=== PATIENT | female | born 1930 | race Caucasian/White ===

== ENCOUNTER 2018-05-30 20:48 | Inpatient (IN) | payer MEDICARE, MEDICAID ==
[~2018-05-30] VITALS: Ht 152.4 cm; Wt 60.0 kg
[~2018-05-30 20:48] MED LIST: AMLO5TAB7 PO; ASPI-496 PO; ASPI325T17; CEFD300C37 PO; CEFTRIAXONE 2 GM in SODIUM CHLORIDE 0.9% 50 ML IV SCH; DONE5TAB7 PO; DOXYCYCLINE 100 MG in DEXTROSE 5% 250 ML IV SCH; HYDR-3237 PO; INSU100I13 SQ; INSU100I18; INSU100V8; LEVO50CA2; LISI-170; LISI-170 PO; LORA10CA; LOVA-39 PO; METO-93; PRED5TAB PO; TIMO5DRO5 EACHEYE; VALA10004 PO
[2018-05-30] MEDS ORDERED: SODIUM CHLORIDE 0.9% 1,000ML IVBOLUS ONE ×2 (21:30→22:00)
[2018-05-30] MEDS ORDERED: PIPERACILLIN/TAZO/PMX 3.375GM 50 ML IVPB ONE (21:30)
[2018-05-30] MEDS ORDERED: VANCOMYCIN PER PHARMACY IV ONE (21:30)
[2018-05-30] MEDS ORDERED: LISI-167 PO (21:33)
[2018-05-30 21:38] LABS: CULTURE INDICATED? YES; MICROSCOPIC INDICATED
[2018-05-30] MEDS ORDERED: PIPERACILLIN/TAZO/PMX 3.375GM 50 ML ONE (21:39)
[2018-05-30] MEDS ORDERED: ACETAMINOPHEN 325 MG TABLET ONE (21:49)
[2018-05-30 21:53] LABS: BASOPHILS # (AUTO) 0.03 x10^3/uL (0-0.1); BASOPHILS % (AUTO) 0 % (0-1); EOSINOPHILS # (AUTO) 0.02 x10^3/uL (0-0.4); EOSINOPHILS % (AUTO) 0 % (1-7); LYMPHOCYTES # (AUTO) 1.17 x10^3/uL (1-3.4); LYMPHOCYTES % (AUTO) 13 % (22-44); MD NO; MEAN CORPUSCULAR HEMOGLOBIN 25.6 pg (27.0-34.8); MEAN CORPUSCULAR HGB CONC 32.8 g/dL (32.4-35.8); MEAN CORPUSCULAR VOLUME 78.1 fL (80-100); MEAN PLATELET VOLUME 10.4 fL (7.4-10.4); MONOCYTES # (AUTO) 0.51 x10^3/uL (0.2-0.8); MONOCYTES % (AUTO) 6 % (2-9); NEUTROPHILS % (AUTO) 81 % (42-75); PLATELET COUNT 142 x10^3/uL (130-400); RED BLOOD COUNT 5.56 x10^6/uL (3.82-5.3); RED CELL DISTRIBUTION WIDTH 16.5 % (9.6-15.2)
[2018-05-30] MEDS ORDERED: ACETAMINOPHEN 325 MG TABLET PO ONE (22:00)
[2018-05-30] MEDS ORDERED: VANCOMYCIN PMX 1GM/200ML 200 ML IV ONE (22:00)
[2018-05-30] MEDS ORDERED: PHARMACOKINETIC CONSULTATION MC ONE (22:00)
[2018-05-30 22:04] LABS: ALANINE AMINOTRANSFERASE 18 U/L (12-78); ALBUMIN 2.7 g/dL (3.4-5.0); ANION GAP 8 mmol/L (5-15); CALCIUM 8.3 mg/dL (8.5-10.1); CHLORIDE 107 mmol/L (98-107); CREATININE 0.99 mg/dL (0.55-1.02)
[2018-05-30 22:09] LABS: ALKALINE PHOSPHATASE 210 U/L (45-117); BILIRUBIN,TOTAL 0.7 mg/dL (0.2-1.0); TOTAL PROTEIN 8.1 g/dL (6.4-8.2); TROPONIN I 0.085 ng/mL (0.000-0.045)
[2018-05-30 22:10] LABS: INTERNATIONAL NORMALIZED RATIO 1.08 (0.93-1.1); PROTHROMBIN TIME 11.1 Seconds (9.6-11.5)
[2018-05-30] MEDS ORDERED: SODIUM CHLORIDE 0.9% 1,000 ML IV ONE (22:39)
[2018-05-30] MEDS ORDERED: SODIUM CHLORIDE 0.9% 1,000 ML IV SCH (23:08)
[2018-05-30] MEDS ORDERED: ONDANSETRON ODT 4 MG PO PRN (23:30)
[2018-05-30] MEDS ORDERED: hydrALAzine 20 MG/ML, 1ML IVPush PRN (23:30)
[2018-05-30] MEDS ORDERED: ACETAMINOPHEN 325 MG TABLET PO PRN (23:30)
[2018-05-30] MEDS ORDERED: HYDROcodone/APAP 5/325 TABLET PO PRN (23:30)
[2018-05-30] MEDS ORDERED: DOCUSATE 100 MG CAPSULE PO PRN (23:30)
[2018-05-30] MEDS ORDERED: POLYETHYLENE GLYCOL 17 GM PACKET PO PRN (23:30)
[2018-05-30] MEDS ORDERED: PROMETHAZINE 25 MG/ML, 1ML IM PRN (23:30)
[2018-05-30] MEDS ORDERED: BISACODYL 10 MG SUPP PR PRN (23:30)
[2018-05-30] MEDS ORDERED: ONDANSETRON 2MG/ML, 2ML IVPush PRN (23:30)
[2018-05-30 23:41] LABS: HEMOGLOBIN A1C 12.4 % (4.2-6.3)
[2018-05-30] MEDS ORDERED: PLEASE ENTER HEIGHT MC SCH (23:45)
[2018-05-30 23:55] LABS: FREE T4 (FREE THYROXINE) 1.07 ng/dL (0.76-1.46); THYROID STIMULATING HORMONE 3.6 mIU/L (0.358-3.740)
[2018-05-31 00:30] VITALS: BP 148/81
[2018-05-31] MEDS: LOVASTATIN 20 MG TABLET PO SCH ×2 (00:52→21:24)
[2018-05-31] MEDS: ASPIRIN 81 MG TABLET CHEW PO SCH ×2 (00:52→21:24)
[2018-05-31] MEDS: HEPARIN 5,000 UNITS/ML, 1ML SQ SCH ×3 (00:52→18:27)
[2018-05-31] MEDS: CEFTRIAXONE 2 GM in SODIUM CHLORIDE 0.9% 50 ML IV SCH (00:52)
[2018-05-31] MEDS: DOXYCYCLINE 100 MG in DEXTROSE 5% 250 ML IV SCH ×2 (01:40→13:27)
[2018-05-31] MEDS: INSULIN LISPRO 100 UNITS/ML, PEN SQ-INSULIN SCH ×5 (01:41→21:24)
[2018-05-31] MEDS: INSULIN GLARGINE 100 UNITS/ML, PEN SQ-INSULIN SCH ×2 (01:41→21:25)
[2018-05-31 03:24] LABS: BASOPHILS # (AUTO) 0.03 x10^3/uL (0-0.1); BASOPHILS % (AUTO) 0 % (0-1); EOSINOPHILS # (AUTO) 0.09 x10^3/uL (0-0.4); EOSINOPHILS % (AUTO) 1 % (1-7); LYMPHOCYTES # (AUTO) 1.74 x10^3/uL (1-3.4); LYMPHOCYTES % (AUTO) 21 % (22-44); MD NO; MEAN CORPUSCULAR HEMOGLOBIN 25.3 pg (27.0-34.8); MEAN CORPUSCULAR HGB CONC 32.2 g/dL (32.4-35.8); MEAN CORPUSCULAR VOLUME 78.8 fL (80-100); MEAN PLATELET VOLUME 9.8 fL (7.4-10.4); MONOCYTES # (AUTO) 0.66 x10^3/uL (0.2-0.8); MONOCYTES % (AUTO) 8 % (2-9); NEUTROPHILS # (AUTO) 5.75 x10^3/uL (1.8-6.8); NEUTROPHILS % (AUTO) 70 % (42-75); PLATELET COUNT 117 x10^3/uL (130-400); RED BLOOD COUNT 4.83 x10^6/uL (3.82-5.3); RED CELL DISTRIBUTION WIDTH 17.1 % (9.6-15.2)
[2018-05-31 03:34] LABS: ALANINE AMINOTRANSFERASE 14 U/L (12-78); ALBUMIN 2.1 g/dL (3.4-5.0); ANION GAP 7 mmol/L (5-15); CALCIUM 7.4 mg/dL (8.5-10.1); CHLORIDE 111 mmol/L (98-107); CHOLESTEROL, TOTAL 204 mg/dL (140-239); CREATININE 0.87 mg/dL (0.55-1.02); TRIGLYCERIDES 98 mg/dL (50-200); VLDL CHOLESTEROL 20 mg/dL (0-25)
[2018-05-31 03:38] LABS: ALKALINE PHOSPHATASE 160 U/L (45-117); BILIRUBIN,TOTAL 0.4 mg/dL (0.2-1.0); CHOL/HDL RATIO 6.6; HDL CHOL % 15 % (28-40); HDL CHOLESTEROL (DIRECT) 31 mg/dL (40-60); LDL CHOLESTEROL,CALCULATED 153 mg/dL (54-169); LDL/HDL RATIO 4.9 (0.5-3.0); TOTAL PROTEIN 6.6 g/dL (6.4-8.2)
[2018-05-31] MEDS ORDERED: OMNIPAQUE 350 MG/ML, 100ML BOTTLE ONE (04:14)
[2018-05-31 07:02] VITALS: BP 101/58
[2018-05-31] MEDS ORDERED: LISINOPRIL 10 MG TABLET PO SCH (09:00)
[2018-05-31 09:06] LABS: TROPONIN I 0.111 ng/mL (0.000-0.045)
[2018-05-31] MEDS: METOPROLOL SUCCINATE 50 MG TAB.ER.24H PO SCH (10:05)
[2018-05-31 12:29] VITALS: BP 90/55
[2018-05-31 12:50] VITALS: BP 100/64
[2018-05-31 14:29] VITALS: BP 117/72
[2018-05-31] MEDS ORDERED: ALBUTEROL SULFATE 2.5 MG/3 ML ONE (14:48)
[2018-05-31 15:00] LABS: TROPONIN I 0.113 ng/mL (0.000-0.045)
[2018-05-31] MEDS ORDERED: ALBUTEROL SULFATE 2.5 MG/3 ML NPPB PRN (15:00)
[2018-05-31] MEDS: NS + 20MEQ KCL 1,000 ML IV SCH (15:15)
[2018-05-31 20:32] VITALS: BP 156/103
[2018-05-31] MEDS: morphine SULFATE 10 MG/ML, 1ML IVPush PRN (21:50)
[2018-05-31] MEDS: ALBUTEROL SULFATE 2.5 MG/3 ML NPPB PRN (21:52)
[2018-06-01] VITALS (11 sets, daily range): BP systolic 102–188; BP diastolic 60–108
[2018-06-01] MEDS: CEFTRIAXONE 2 GM in SODIUM CHLORIDE 0.9% 50 ML IV SCH (00:18)
[2018-06-01] MEDS: DOXYCYCLINE 100 MG in DEXTROSE 5% 250 ML IV SCH ×2 (01:09→13:13)
[2018-06-01] MEDS: HEPARIN 5,000 UNITS/ML, 1ML SQ SCH ×3 (01:35→18:08)
[2018-06-01] MEDS: NS + 20MEQ KCL 1,000 ML IV SCH ×2 (06:24→22:39)
[2018-06-01] MEDS: INSULIN LISPRO 100 UNITS/ML, PEN SQ-INSULIN SCH ×4 (07:00→21:18)
[2018-06-01] MEDS: METOPROLOL SUCCINATE 50 MG TAB.ER.24H PO SCH (08:34)
[2018-06-01] MEDS: morphine SULFATE 10 MG/ML, 1ML IVPush PRN ×2 (13:07→18:37)
[2018-06-01 14:05] LABS: TROPONIN I 0.054 ng/mL (0.000-0.045)
[2018-06-01] MEDS ORDERED: LABETALOL 5MG/ML, 20ML IVPush PRN (14:30)
[2018-06-01] MEDS: LISINOPRIL 10 MG TABLET PO SCH (14:41)
[2018-06-01] MEDS: methylPREDNISolone SOD SUCC 125 MG/2 ML IVPush SCH ×2 (14:41→21:16)
[2018-06-01] MEDS: GUAIFENESIN 200 MG TABLET PO SCH ×2 (16:16→21:16)
[2018-06-01] MEDS: LOVASTATIN 20 MG TABLET PO SCH (21:16)
[2018-06-01] MEDS: ASPIRIN 81 MG TABLET CHEW PO SCH (21:16)
[2018-06-01] MEDS: INSULIN GLARGINE 100 UNITS/ML, PEN SQ-INSULIN SCH (21:18)
[2018-06-02] MEDS: CEFTRIAXONE 2 GM in SODIUM CHLORIDE 0.9% 50 ML IV SCH (00:32)
[2018-06-02] MEDS: DOXYCYCLINE 100 MG in DEXTROSE 5% 250 ML IV SCH ×2 (01:26→14:24)
[2018-06-02 02:00] VITALS: BP 124/64
[2018-06-02] MEDS: methylPREDNISolone SOD SUCC 125 MG/2 ML IVPush SCH ×4 (02:45→21:09)
[2018-06-02] MEDS: HEPARIN 5,000 UNITS/ML, 1ML SQ SCH ×4 (02:45→21:45)
[2018-06-02 05:09] LABS: ANION GAP 6 mmol/L (5-15); CALCIUM 8.3 mg/dL (8.5-10.1); CHLORIDE 115 mmol/L (98-107)
[2018-06-02 05:11] LABS: BASOPHILS % (AUTO) 0 % (0-1); EOSINOPHILS % (AUTO) 0 % (1-7); LYMPHOCYTES # (AUTO) 0.39 x10^3/uL (1-3.4); LYMPHOCYTES % (AUTO) 6 % (22-44); MD NO; MEAN CORPUSCULAR HEMOGLOBIN 25.3 pg (27.0-34.8); MEAN CORPUSCULAR HGB CONC 31.9 g/dL (32.4-35.8); MEAN CORPUSCULAR VOLUME 79.3 fL (80-100); MEAN PLATELET VOLUME 9.7 fL (7.4-10.4); MONOCYTES # (AUTO) 0.05 x10^3/uL (0.2-0.8); MONOCYTES % (AUTO) 1 % (2-9); NEUTROPHILS # (AUTO) 5.88 x10^3/uL (1.8-6.8); NEUTROPHILS % (AUTO) 93 % (42-75); PLATELET COUNT 149 x10^3/uL (130-400); RED BLOOD COUNT 4.81 x10^6/uL (3.82-5.3); RED CELL DISTRIBUTION WIDTH 17.7 % (9.6-15.2)
[2018-06-02 05:12] LABS: CREATININE 0.88 mg/dL (0.55-1.02)
[2018-06-02] MEDS: GUAIFENESIN 200 MG TABLET PO SCH ×5 (06:21→21:03)
[2018-06-02 06:59] VITALS: BP 148/82
[2018-06-02] MEDS: LISINOPRIL 10 MG TABLET PO SCH (08:54)
[2018-06-02] MEDS ORDERED: METOPROLOL SUCCINATE 50 MG TAB.ER.24H PO SCH (09:00)
[2018-06-02] MEDS: INSULIN LISPRO 100 UNITS/ML, PEN SQ-INSULIN SCH ×6 (09:08→21:10)
[2018-06-02] MEDS ORDERED: FUROSEMIDE 20 MG/2 ML ONE (11:19)
[2018-06-02] MEDS ORDERED: FUROSEMIDE 20 MG/2 ML IV ONE ×2 (11:30→20:00)
[2018-06-02 12:49] VITALS: BP 145/79
[2018-06-02] MEDS: ALBUTEROL SULFATE 2.5 MG/3 ML NPPB PRN (16:35)
[2018-06-02 20:15] VITALS: BP 119/74
[2018-06-02] MEDS: ASPIRIN 81 MG TABLET CHEW PO SCH (20:20)
[2018-06-02] MEDS: LOVASTATIN 20 MG TABLET PO SCH (20:20)
[2018-06-02] MEDS: PIPERACILLIN/TAZO/PMX 3.375GM 50 ML IV SCH ×2 (21:08→21:59)
[2018-06-02] MEDS: INSULIN GLARGINE 100 UNITS/ML, PEN SQ-INSULIN SCH (21:10)
[2018-06-02 22:02] LABS: BASOPHILS % (AUTO) 0 % (0-1); EOSINOPHILS % (AUTO) 0 % (1-7); LYMPHOCYTES # (AUTO) 0.72 x10^3/uL (1-3.4); LYMPHOCYTES % (AUTO) 7 % (22-44); MD NO; MEAN CORPUSCULAR HEMOGLOBIN 25.6 pg (27.0-34.8); MEAN CORPUSCULAR HGB CONC 32.6 g/dL (32.4-35.8); MEAN CORPUSCULAR VOLUME 78.6 fL (80-100); MEAN PLATELET VOLUME 9.6 fL (7.4-10.4); MONOCYTES # (AUTO) 0.38 x10^3/uL (0.2-0.8); MONOCYTES % (AUTO) 4 % (2-9); NEUTROPHILS # (AUTO) 8.83 x10^3/uL (1.8-6.8); NEUTROPHILS % (AUTO) 89 % (42-75); PLATELET COUNT 169 x10^3/uL (130-400); RED BLOOD COUNT 4.66 x10^6/uL (3.82-5.3)
[2018-06-02 22:10] LABS: ANION GAP 7 mmol/L (5-15); CALCIUM 8.6 mg/dL (8.5-10.1); CHLORIDE 114 mmol/L (98-107); CREATININE 1.11 mg/dL (0.55-1.02)
[2018-06-03 02:26] VITALS: BP 122/70
[2018-06-03] MEDS: methylPREDNISolone SOD SUCC 125 MG/2 ML IVPush SCH ×4 (03:16→22:22)
[2018-06-03] MEDS: HEPARIN 5,000 UNITS/ML, 1ML SQ SCH ×3 (05:55→22:00)
[2018-06-03] MEDS: PIPERACILLIN/TAZO/PMX 3.375GM 50 ML IV SCH ×3 (05:55→22:22)
[2018-06-03] MEDS: INSULIN LISPRO 100 UNITS/ML, PEN SQ-INSULIN SCH ×4 (07:00→22:47)
[2018-06-03 07:38] VITALS: BP 147/90
[2018-06-03] MEDS: GUAIFENESIN 100 MG/5 ML, 5ML UDC PO SCH ×3 (14:09→21:00)
[2018-06-03] MEDS: LISINOPRIL 10 MG TABLET PO SCH (14:10)
[2018-06-03 14:29] VITALS: BP 128/84
[2018-06-03] MEDS: METOPROLOL TARTRATE 50 MG TABLET PO SCH (18:20)
[2018-06-03 20:01] VITALS: BP 111/71
[2018-06-03] MEDS: ASPIRIN 81 MG TABLET CHEW PO SCH (21:00)
[2018-06-03] MEDS: LOVASTATIN 20 MG TABLET PO SCH (21:00)
[2018-06-03] MEDS: INSULIN GLARGINE 100 UNITS/ML, PEN SQ-INSULIN SCH (21:00)
[2018-06-03] MEDS ORDERED: SODIUM CHLORIDE 0.9% 1,000 ML IV SCH (23:00)
[2018-06-04 00:37] VITALS: BP 142/79
[2018-06-04] MEDS: methylPREDNISolone SOD SUCC 125 MG/2 ML IVPush SCH ×4 (04:48→21:12)
[2018-06-04] MEDS: GUAIFENESIN 100 MG/5 ML, 5ML UDC PO SCH ×4 (06:00→21:14)
[2018-06-04] MEDS: HEPARIN 5,000 UNITS/ML, 1ML SQ SCH ×3 (06:00→21:20)
[2018-06-04] MEDS: METOPROLOL TARTRATE 50 MG TABLET PO SCH (06:00)
[2018-06-04] MEDS: PIPERACILLIN/TAZO/PMX 3.375GM 50 ML IV SCH (06:22)
[2018-06-04 07:18] VITALS: BP 129/83
[2018-06-04] MEDS: FLUTICASONE/VILANTEROL 200-25MCG/INH INH SCH (09:00)
[2018-06-04 09:10] LABS: MEAN CORPUSCULAR HEMOGLOBIN 25.4 pg (27.0-34.8); MEAN CORPUSCULAR HGB CONC 32.4 g/dL (32.4-35.8); MEAN CORPUSCULAR VOLUME 78.5 fL (80-100); MEAN PLATELET VOLUME 9.4 fL (7.4-10.4); PLATELET COUNT 126 x10^3/uL (130-400); RED BLOOD COUNT 4.75 x10^6/uL (3.82-5.3); RED CELL DISTRIBUTION WIDTH 17.9 % (9.6-15.2)
[2018-06-04 09:15] LABS: ANION GAP 10 mmol/L (5-15); CALCIUM 8.4 mg/dL (8.5-10.1); CHLORIDE 114 mmol/L (98-107); CREATININE 1.17 mg/dL (0.55-1.02)
[2018-06-04 09:36] LABS: BASOPHILS % (AUTO) 0 % (0-1); EOSINOPHILS # (AUTO) 0.06 x10^3/uL (0-0.4); EOSINOPHILS % (AUTO) 1 % (1-7); LYMPHOCYTES # (AUTO) 0.24 x10^3/uL (1-3.4); LYMPHOCYTES % (AUTO) 3 % (22-44); MD SCAN; MONOCYTES # (AUTO) 0.11 x10^3/uL (0.2-0.8); MONOCYTES % (AUTO) 2 % (2-9); NEUTROPHILS # (AUTO) 6.86 x10^3/uL (1.8-6.8); NEUTROPHILS % (AUTO) 94 % (42-75)
[2018-06-04] MEDS: INSULIN LISPRO 100 UNITS/ML, PEN SQ-INSULIN SCH ×4 (10:24→21:13)
[2018-06-04] MEDS: FUROSEMIDE 20 MG/2 ML IV SCH (10:48)
[2018-06-04] MEDS ORDERED: NITROGLYCERIN 0.4 MG BOTTLE (25 TABS) SL PRN (11:00)
[2018-06-04] MEDS: CEFTRIAXONE 2 GM in SODIUM CHLORIDE 0.9% 50 ML IV SCH (11:54)
[2018-06-04] MEDS: ERGOCALCIFEROL 50,000 UNIT CAPSULE PO SCH (11:54)
[2018-06-04] MEDS: LISINOPRIL 10 MG TABLET PO SCH (11:55)
[2018-06-04 14:23] VITALS: BP 130/78
[2018-06-04] MEDS ORDERED: OMNIPAQUE 350 MG/ML, 150 ML BOTTLE ONE (14:24)
[2018-06-04] MEDS: DOXYCYCLINE 100 MG in DEXTROSE 5% 250 ML IV SCH (17:15)
[2018-06-04] MEDS: CARVEDILOL 6.25 MG TABLET PO SCH (17:16)
[2018-06-04 19:19] VITALS: BP 171/76
[2018-06-04] MEDS: ASPIRIN 81 MG TABLET CHEW PO SCH (21:12)
[2018-06-04] MEDS: LOVASTATIN 20 MG TABLET PO SCH (21:12)
[2018-06-05 01:23] VITALS: BP 113/68
[2018-06-05] MEDS: DOXYCYCLINE 100 MG in DEXTROSE 5% 250 ML IV SCH ×2 (01:41→16:35)
[2018-06-05] MEDS: methylPREDNISolone SOD SUCC 125 MG/2 ML IVPush SCH ×4 (02:31→19:49)
[2018-06-05 06:10] LABS: CHLORIDE 114 mmol/L (98-107)
[2018-06-05 06:14] LABS: ANION GAP 10 mmol/L (5-15); CALCIUM 7.7 mg/dL (8.5-10.1); CREATININE 1.08 mg/dL (0.55-1.02)
[2018-06-05] MEDS: CARVEDILOL 6.25 MG TABLET PO SCH ×2 (06:23→18:31)
[2018-06-05] MEDS: HEPARIN 5,000 UNITS/ML, 1ML SQ SCH ×3 (06:24→22:15)
[2018-06-05] MEDS: GUAIFENESIN 100 MG/5 ML, 5ML UDC PO SCH ×3 (06:24→15:32)
[2018-06-05 08:00] VITALS: BP 124/70
[2018-06-05] MEDS: FLUTICASONE/VILANTEROL 200-25MCG/INH INH SCH ×2 (09:00→10:55)
[2018-06-05] MEDS ORDERED: POTASSIUM CHLORIDE 20 MEQ in DEXTROSE 5% 1,000 ML IV SCH (10:00)
[2018-06-05] MEDS: FUROSEMIDE 20 MG/2 ML IV SCH ×2 (10:00→10:56)
[2018-06-05] MEDS ORDERED: INSULIN GLARGINE 100 UNITS/ML, PEN SQ-INSULIN SCH ×2 (10:00→21:00)
[2018-06-05] MEDS: INSULIN LISPRO 100 UNITS/ML, PEN SQ-INSULIN SCH ×4 (10:55→20:30)
[2018-06-05] MEDS: LISINOPRIL 10 MG TABLET PO SCH (10:56)
[2018-06-05] MEDS: CEFTRIAXONE 2 GM in SODIUM CHLORIDE 0.9% 50 ML IV SCH (10:59)
[2018-06-05 14:50] VITALS: BP 148/76
[2018-06-05] MEDS: ALBUTEROL SULFATE 2.5 MG/3 ML NPPB PRN (15:26)
[2018-06-05 19:48] VITALS: BP 124/65
[2018-06-05] MEDS ORDERED: FUROSEMIDE 20 MG/2 ML IV ONE (20:00)
[2018-06-05] MEDS: ASPIRIN 81 MG TABLET CHEW PO SCH (20:24)
[2018-06-05] MEDS: LOVASTATIN 20 MG TABLET PO SCH (20:24)
[2018-06-06 02:11] VITALS: BP 116/54
[2018-06-06] MEDS: DOXYCYCLINE 100 MG in DEXTROSE 5% 250 ML IV SCH (02:12)
[2018-06-06] MEDS: methylPREDNISolone SOD SUCC 125 MG/2 ML IVPush SCH ×4 (02:12→21:27)
[2018-06-06 05:12] LABS: ANION GAP 8 mmol/L (5-15); CALCIUM 7.9 mg/dL (8.5-10.1); CHLORIDE 112 mmol/L (98-107); CREATININE 0.87 mg/dL (0.55-1.02)
[2018-06-06] MEDS: INSULIN LISPRO 100 UNITS/ML, PEN SQ-INSULIN SCH ×4 (05:36→21:27)
[2018-06-06] MEDS: CARVEDILOL 6.25 MG TABLET PO SCH ×2 (05:36→17:36)
[2018-06-06] MEDS: HEPARIN 5,000 UNITS/ML, 1ML SQ SCH ×3 (05:36→21:27)
[2018-06-06 08:24] VITALS: BP 138/78
[2018-06-06] MEDS: FLUTICASONE/VILANTEROL 200-25MCG/INH INH SCH (09:00)
[2018-06-06] MEDS: LISINOPRIL 10 MG TABLET PO SCH (09:27)
[2018-06-06] MEDS: FUROSEMIDE 20 MG/2 ML IV SCH (09:27)
[2018-06-06] MEDS ORDERED: POTASSIUM CHLORIDE 20 MEQ in DEXTROSE 5% 1,000 ML IV SCH (10:00)
[2018-06-06] MEDS: CEFTRIAXONE 2 GM in SODIUM CHLORIDE 0.9% 50 ML IV SCH (12:24)
[2018-06-06 14:36] VITALS: BP 134/72
[2018-06-06] MEDS: POTASSIUM CHLORIDE 40 MEQ in DEXTROSE 5% 1,000 ML IV SCH (15:15)
[2018-06-06] MEDS: PIPERACILLIN/TAZO/PMX 3.375GM 50 ML IV SCH ×2 (15:15→22:30)
[2018-06-06 20:00] VITALS: BP 106/67
[2018-06-06] MEDS: ASPIRIN 81 MG TABLET CHEW PO SCH (21:27)
[2018-06-06] MEDS: LOVASTATIN 20 MG TABLET PO SCH (21:27)
[2018-06-06] MEDS: INSULIN GLARGINE 100 UNITS/ML, PEN SQ-INSULIN SCH (21:28)
[2018-06-07 01:23] VITALS: BP 135/70
[2018-06-07] MEDS: methylPREDNISolone SOD SUCC 125 MG/2 ML IVPush SCH ×4 (03:20→21:31)
[2018-06-07] MEDS: CARVEDILOL 6.25 MG TABLET PO SCH ×2 (05:35→17:51)
[2018-06-07] MEDS: PIPERACILLIN/TAZO/PMX 3.375GM 50 ML IV SCH ×3 (05:35→22:41)
[2018-06-07] MEDS: HEPARIN 5,000 UNITS/ML, 1ML SQ SCH ×3 (05:36→22:41)
[2018-06-07 05:59] LABS: ANION GAP 8 mmol/L (5-15); CALCIUM 8.1 mg/dL (8.5-10.1); CHLORIDE 111 mmol/L (98-107)
[2018-06-07 06:00] LABS: CREATININE 0.86 mg/dL (0.55-1.02)
[2018-06-07] MEDS: INSULIN LISPRO 100 UNITS/ML, PEN SQ-INSULIN SCH ×4 (07:00→21:33)
[2018-06-07] MEDS: FLUTICASONE/VILANTEROL 200-25MCG/INH INH SCH (09:00)
[2018-06-07 09:07] VITALS: BP 159/79
[2018-06-07] MEDS: FUROSEMIDE 20 MG/2 ML IV SCH (09:19)
[2018-06-07] MEDS: LISINOPRIL 10 MG TABLET PO SCH (09:19)
[2018-06-07] MEDS ORDERED: POTASSIUM CHLORIDE 40 MEQ in DEXTROSE 5% 1,000 ML IV SCH (10:00)
[2018-06-07 12:06] VITALS: BP 154/79
[2018-06-07] MEDS: POTASSIUM CHLORIDE 40 MEQ in DEXTROSE 5% 1,000 ML IV SCH (17:51)
[2018-06-07 19:48] VITALS: BP 96/59
[2018-06-07] MEDS: ASPIRIN 81 MG TABLET CHEW PO SCH (21:31)
[2018-06-07] MEDS: LOVASTATIN 20 MG TABLET PO SCH (21:32)
[2018-06-07] MEDS: INSULIN GLARGINE 100 UNITS/ML, PEN SQ-INSULIN SCH (21:33)
[2018-06-08 01:34] VITALS: BP 131/63
[2018-06-08] MEDS: methylPREDNISolone SOD SUCC 125 MG/2 ML IVPush SCH ×4 (03:00→21:30)
[2018-06-08] MEDS: PIPERACILLIN/TAZO/PMX 3.375GM 50 ML IV SCH ×3 (06:29→22:52)
[2018-06-08 06:30] VITALS: BP 177/113
[2018-06-08] MEDS: CARVEDILOL 6.25 MG TABLET PO SCH ×2 (06:30→18:16)
[2018-06-08] MEDS: HEPARIN 5,000 UNITS/ML, 1ML SQ SCH ×3 (06:30→21:35)
[2018-06-08 06:32] LABS: ANION GAP 5 mmol/L (5-15); CHLORIDE 112 mmol/L (98-107)
[2018-06-08 06:38] VITALS: BP 165/87
[2018-06-08 06:57] VITALS: BP 132/76
[2018-06-08] MEDS: LISINOPRIL 10 MG TABLET PO SCH (08:41)
[2018-06-08] MEDS: FUROSEMIDE 20 MG/2 ML IV SCH (08:42)
[2018-06-08] MEDS: FLUTICASONE/VILANTEROL 200-25MCG/INH INH SCH (08:43)
[2018-06-08] MEDS: INSULIN LISPRO 100 UNITS/ML, PEN SQ-INSULIN SCH ×4 (08:43→21:34)
[2018-06-08 13:15] VITALS: BP 128/82
[2018-06-08] MEDS: POTASSIUM CHLORIDE 40 MEQ in DEXTROSE 5% 1,000 ML IV SCH (18:16)
[2018-06-08 20:56] VITALS: BP 124/71
[2018-06-08] MEDS: LOVASTATIN 20 MG TABLET PO SCH (21:35)
[2018-06-08] MEDS: INSULIN GLARGINE 100 UNITS/ML, PEN SQ-INSULIN SCH (21:35)
[2018-06-08] MEDS: ASPIRIN 81 MG TABLET CHEW PO SCH (21:35)
[2018-06-09 03:02] VITALS: BP 122/67
[2018-06-09] MEDS: methylPREDNISolone SOD SUCC 125 MG/2 ML IVPush SCH ×4 (03:24→22:01)
[2018-06-09] MEDS: HEPARIN 5,000 UNITS/ML, 1ML SQ SCH ×2 (06:09→15:49)
[2018-06-09] MEDS: CARVEDILOL 6.25 MG TABLET PO SCH ×2 (06:09→17:16)
[2018-06-09] MEDS: PIPERACILLIN/TAZO/PMX 3.375GM 50 ML IV SCH ×2 (06:19→15:49)
[2018-06-09 07:22] VITALS: BP 100/60
[2018-06-09] MEDS: FLUTICASONE/VILANTEROL 200-25MCG/INH INH SCH (08:27)
[2018-06-09] MEDS: FUROSEMIDE 20 MG/2 ML IV SCH (08:27)
[2018-06-09] MEDS: LISINOPRIL 10 MG TABLET PO SCH (08:29)
[2018-06-09] MEDS: INSULIN LISPRO 100 UNITS/ML, PEN SQ-INSULIN SCH ×4 (08:33→22:02)
[2018-06-09 12:43] VITALS: BP 154/89
[2018-06-09] MEDS: POTASSIUM CHLORIDE 40 MEQ in DEXTROSE 5% 1,000 ML IV SCH (17:22)
[2018-06-09 19:38] VITALS: BP 102/69
[2018-06-09] MEDS: LOVASTATIN 20 MG TABLET PO SCH (22:01)
[2018-06-09] MEDS: ASPIRIN 81 MG TABLET CHEW PO SCH (22:01)
[2018-06-09] MEDS: INSULIN GLARGINE 100 UNITS/ML, PEN SQ-INSULIN SCH (22:03)
[2018-06-10] MEDS: PIPERACILLIN/TAZO/PMX 3.375GM 50 ML IV SCH ×3 (00:08→23:58)
[2018-06-10] MEDS: HEPARIN 5,000 UNITS/ML, 1ML SQ SCH ×4 (00:08→23:58)
[2018-06-10 02:48] VITALS: BP 127/71
[2018-06-10] MEDS: methylPREDNISolone SOD SUCC 125 MG/2 ML IVPush SCH ×4 (04:06→22:01)
[2018-06-10 05:31] VITALS: BP 144/87
[2018-06-10] MEDS: CARVEDILOL 6.25 MG TABLET PO SCH ×2 (05:33→17:27)
[2018-06-10 06:43] VITALS: BP 116/64
[2018-06-10] MEDS: INSULIN LISPRO 100 UNITS/ML, PEN SQ-INSULIN SCH ×4 (07:00→21:00)
[2018-06-10] MEDS: FLUTICASONE/VILANTEROL 200-25MCG/INH INH SCH (09:00)
[2018-06-10] MEDS: FUROSEMIDE 20 MG/2 ML IV SCH (09:12)
[2018-06-10] MEDS: LISINOPRIL 10 MG TABLET PO SCH (09:13)
[2018-06-10] MEDS: POTASSIUM CHLORIDE 40 MEQ in DEXTROSE 5% 1,000 ML IV SCH (11:45)
[2018-06-10 13:03] VITALS: BP 132/77
[2018-06-10 14:43] VITALS: BP 149/90
[2018-06-10] MEDS ORDERED: PIPERACILLIN/TAZO 3.375 GM in SODIUM CHLORIDE 0.9% 50 ML IV SCH (16:00)
[2018-06-10] MEDS: LOVASTATIN 20 MG TABLET PO SCH (21:11)
[2018-06-10] MEDS: ASPIRIN 81 MG TABLET CHEW PO SCH (21:11)
[2018-06-10 21:15] VITALS: BP 104/67
[2018-06-10] MEDS ORDERED: INSULIN LISPRO 100 UNITS/ML, PEN SQ-INSULIN ONE (22:00)
[2018-06-10] MEDS: INSULIN GLARGINE 100 UNITS/ML, PEN SQ-INSULIN SCH (22:00)
[2018-06-11 03:28] VITALS: BP 115/72
[2018-06-11] MEDS: methylPREDNISolone SOD SUCC 125 MG/2 ML IVPush SCH ×2 (03:31→10:33)
[2018-06-11 07:25] VITALS: BP 118/68
[2018-06-11] MEDS: HEPARIN 5,000 UNITS/ML, 1ML SQ SCH ×2 (08:07→16:14)
[2018-06-11] MEDS: INSULIN LISPRO 100 UNITS/ML, PEN SQ-INSULIN SCH ×4 (08:07→21:00)
[2018-06-11] MEDS: CARVEDILOL 6.25 MG TABLET PO SCH ×2 (08:08→17:26)
[2018-06-11] MEDS: LISINOPRIL 10 MG TABLET PO SCH (08:08)
[2018-06-11] MEDS: FUROSEMIDE 20 MG/2 ML IV SCH (08:08)
[2018-06-11] MEDS: FLUTICASONE/VILANTEROL 200-25MCG/INH INH SCH (08:08)
[2018-06-11] MEDS: PIPERACILLIN/TAZO/PMX 3.375GM 50 ML IV SCH ×2 (09:16→16:14)
[2018-06-11] MEDS: ERGOCALCIFEROL 50,000 UNIT CAPSULE PO SCH (09:16)
[2018-06-11] MEDS ORDERED: INSULIN GLARGINE 100 UNITS/ML, PEN SQ-INSULIN ONE ×2 (11:30→17:30)
[2018-06-11] MEDS ORDERED: INSU100I13 SQ-INSULIN (13:14)
[2018-06-11] MEDS ORDERED: FURO40TA6 PO (13:14)
[2018-06-11] MEDS ORDERED: CARV6.2512 PO (13:14)
[2018-06-11] MEDS ORDERED: ERGO500017 PO (13:14)
[2018-06-11] MEDS ORDERED: INSU100C5 SQ-INSULIN (13:14)
[2018-06-11] MEDS ORDERED: DOCU-131 PO (13:14)
[2018-06-11] MEDS ORDERED: PIPE3.373 IV (13:14)
[2018-06-11] MEDS ORDERED: FLUT1BLS INH (13:14)
[2018-06-11] MEDS ORDERED: ALBU1.25 NEB (13:14)
[2018-06-11] MEDS ORDERED: POTA20PA31 PO (13:23)
[2018-06-11 14:58] VITALS: BP 100/65
[2018-06-11] MEDS ORDERED: INSULIN REGULAR 100 UNITS/ML, 3ML VIAL SQ-INSULIN ONE (15:00)
[2018-06-11] MEDS ORDERED: INSULIN LISPRO 100 UNITS/ML, PEN SQ-INSULIN SCH ×2 (17:00→22:00)
[2018-06-11 17:06] LABS: ANION GAP 13 mmol/L (5-15); CALCIUM 7.6 mg/dL (8.5-10.1); CHLORIDE 105 mmol/L (98-107); CREATININE 1.38 mg/dL (0.55-1.02)
[2018-06-11] MEDS: INSULIN GLARGINE 100 UNITS/ML, PEN SQ-INSULIN SCH (17:10)
[2018-06-11 20:28] VITALS: BP 107/64
[2018-06-11] MEDS: LOVASTATIN 20 MG TABLET PO SCH (21:06)
[2018-06-11] MEDS: ASPIRIN 81 MG TABLET CHEW PO SCH (21:06)
[2018-06-12] MEDS: PIPERACILLIN/TAZO/PMX 3.375GM 50 ML IV SCH ×2 (00:08→07:59)
[2018-06-12] MEDS: HEPARIN 5,000 UNITS/ML, 1ML SQ SCH ×2 (00:08→07:58)
[2018-06-12 00:58] VITALS: BP_SYST 89; BP_SYST 91; BP_DIAS 51
[2018-06-12] MEDS: CARVEDILOL 6.25 MG TABLET PO SCH (05:53)
[2018-06-12] MEDS: FLUTICASONE/VILANTEROL 200-25MCG/INH INH SCH (07:59)
[2018-06-12] MEDS: LISINOPRIL 10 MG TABLET PO SCH (07:59)
[2018-06-12] MEDS: INSULIN LISPRO 100 UNITS/ML, PEN SQ-INSULIN SCH (08:03)
[2018-06-12 08:09] VITALS: BP 86/55
[2018-06-12 08:45] VITALS: BP 90/58
[2018-06-12] MEDS ORDERED: FUROSEMIDE 40 MG TABLET PO SCH (09:00)
== END 2018-06-12 10:19 | DRG 871 ==
LOC: ED 22:34 → EDIP 22:39 → 4EST 23:53 → 3NW 06-10 15:56
PROVIDERS: ADMIT Internal Medicine; ATTEND Internal Medicine
PROC: 0T9B70Z Drainage of Bladder with Drainage Device, Via Natural or Artificial Opening (ICD-10-PCS; principal; 2018-05-30)
DX: A41.9 Sepsis, unspecified organism (principal); J96.01 Acute respiratory failure with hypoxia; E43 Unspecified severe protein-calorie malnutrition; I50.23 Acute on chronic systolic (congestive) heart failure; J15.0 Pneumonia due to Klebsiella pneumoniae; J69.0 Pneumonitis due to inhalation of food and vomit; E87.0 Hyperosmolality and hypernatremia; J98.11 Atelectasis; N39.0 Urinary tract infection, site not specified; B96.1 Klebsiella pneumoniae [K. pneumoniae] as the cause of diseases classified elsewhere; E11.42 Type 2 diabetes mellitus with diabetic polyneuropathy; E11.65 Type 2 diabetes mellitus with hyperglycemia; E78.5 Hyperlipidemia, unspecified; E86.0 Dehydration; E87.6 Hypokalemia; F03.90 Unspecified dementia, unspecified severity, without behavioral disturbance, psychotic disturbance, mood disturbance, and anxiety; F32.9 Major depressive disorder, single episode, unspecified; I11.0 Hypertensive heart disease with heart failure; K59.00 Constipation, unspecified; R13.10 Dysphagia, unspecified; R32 Unspecified urinary incontinence; Z51.5 Encounter for palliative care; Z66 Do not resuscitate; Z74.01 Bed confinement status; Z79.4 Long term (current) use of insulin; I69.320 Aphasia following cerebral infarction; Z79.82 Long term (current) use of aspirin; Z79.899 Other long term (current) drug therapy; Z99.3 Dependence on wheelchair; Z98.49 Cataract extraction status, unspecified eye; Z68.25 Body mass index [BMI] 25.0-25.9, adult
CPT/HCPCS: 36415; 36600; 70450; 71045; 71275; 74220; 74230; 80048; 80053; 80061; 81001; 82306; 82607; 82728; 82803; 82947; 82962; 83036; 83540; 83550; 83605; 83735; 83880; 84100; 84145; 84439; 84443; 84466; 84484; 85025; 85610; 85730; 87040; 87077; 87086; 87186; 93005; 93306; 93970; 94640; 96365; 96368; 99291; G0378; J0696; J1644; J1815; J2543; J3370; J3480; J7060; J7070; J7613; Q9967; J0360; J1940; J2270; J2930; J7030